=== PATIENT | female | born 1950 | race Caucasian/White ===

== ENCOUNTER → 2017-02-01 | Outpatient (CLI) | payer OTHER ==
[~2017-02-01] MED LIST: CA C1TAB60 PO; CHOL20002 PO; FENTANYL PF 100 MCG/2ML ONE; FLUMAZENIL 0.1 MG/1 ML, 5ML ONE; GABA-827 PO; HYDR-3237 PO; MIDAZOLAM 1 MG/ML, 5ML ONE; MULT-717 PO; NALOXONE 1 MG/ML, 2ML ONE; ONDA4TAB10 PO; PROM25SU34 RC; SUMA100T4 PO; TIZA4TAB PO; ZOLP10TA5 PO
== END | disposition home or self-care (01) ==
LOC: RAD 11:54
PROVIDERS: ATTEND Physician Assistant Surgical
DX: M13.812 Other specified arthritis, left shoulder (principal)
CPT/HCPCS: 73221; 99156; 99157; J2250; J3010; J2310

== ENCOUNTER 2019-08-01 18:10 | Emergency (ER) | payer MEDICARE, OTHER ==
[~2019-08-01] VITALS: Ht 162.6 cm; Wt 81.2 kg
[~2019-08-01 18:10] MED LIST changes: -CHOL20002 PO; +CHOL200052 PO; -FENTANYL PF 100 MCG/2ML ONE; -FLUMAZENIL 0.1 MG/1 ML, 5ML ONE; -MIDAZOLAM 1 MG/ML, 5ML ONE; -NALOXONE 1 MG/ML, 2ML ONE; -TIZA4TAB PO; +TIZA4TAB2 PO
--- NOTE | 2019-08-01 18:44 | NUR ---
PRESENTS WITH EPIGASTRIC PAIN RADIATING TO LEFT RIB CAGE. DENIES N/V/D. PT PLACED ON MONITOR. VS STABLE AT THIS TIME. WILL CONTINUE TO MONITOR.
[2019-08-01] MEDS ORDERED: MAALOX/HYOSCYAMINE/LIDOCAINE 45 ML BTL PO ONE (19:30)
[2019-08-01] MEDS ORDERED: ONDANSETRON 2MG/ML, 2ML IVPush ONE (19:30)
[2019-08-01] MEDS ORDERED: SODIUM CHLORIDE FLUSH 10ML SYR IVF ONE (19:30)
[2019-08-01] MEDS ORDERED: SODIUM CHLORIDE 0.9% 1,000ML IVBOLUS ONE (19:30)
[2019-08-01] MEDS ORDERED: MORPHINE SULFATE 4 MG/ML, 1ML ONE ×2 (19:33→20:03)
[2019-08-01] MEDS ORDERED: ONDANSETRON 2MG/ML, 2ML ONE (19:33)
[2019-08-01] MEDS ORDERED: MAALOX/HYOSCYAMINE/LIDOCAINE 45 ML BTL ONE (19:33)
[2019-08-01] MEDS: MORPHINE SULFATE 4 MG/ML, 1ML IVPush PRN ×2 (19:41→20:07)
[2019-08-01 19:52] LABS: BASOPHILS # (AUTO) 0.06 x10^3/uL (0-0.1); BASOPHILS % (AUTO) 1 % (0-1); EOSINOPHILS # (AUTO) 0.34 x10^3/uL (0-0.4); EOSINOPHILS % (AUTO) 6 % (1-7); LYMPHOCYTES # (AUTO) 1.91 x10^3/uL (1-3.4); LYMPHOCYTES % (AUTO) 32 % (22-44); MD NO; MEAN CORPUSCULAR HEMOGLOBIN 30.7 pg (27.0-34.8); MEAN CORPUSCULAR HGB CONC 33.6 g/dL (32.4-35.8); MEAN CORPUSCULAR VOLUME 91.3 fL (80-100); MEAN PLATELET VOLUME 8.8 fL (7.4-10.4); MONOCYTES % (AUTO) 9 % (2-9); NEUTROPHILS # (AUTO) 3.08 x10^3/uL (1.8-6.8); NEUTROPHILS % (AUTO) 52 % (42-75); PLATELET COUNT 216 x10^3/uL (130-400); RED BLOOD COUNT 4.69 x10^6/uL (3.82-5.3); RED CELL DISTRIBUTION WIDTH 12.9 % (9.6-15.2)
--- NOTE | 2019-08-01 19:52 | NUR ---
PT RESTING IN [facility]. REGISTRATION IN WITH ROOM GOING OVER PAPERWORK. NAD. GEE.
[2019-08-01 20:02] LABS: ALANINE AMINOTRANSFERASE 21 U/L (12-78); ALBUMIN 4.1 g/dL (3.4-5.0); ANION GAP 6 mmol/L (5-15); CALCIUM 9.2 mg/dL (8.5-10.1); CHLORIDE 100 mmol/L (98-107); CREATININE 0.92 mg/dL (0.55-1.02)
[2019-08-01 20:06] LABS: ALKALINE PHOSPHATASE 71 U/L (45-117); BILIRUBIN,TOTAL 0.8 mg/dL (0.2-1.0); TOTAL PROTEIN 7.5 g/dL (6.4-8.2); TROPONIN I < 0.015 ng/mL (0.000-0.045)
[2019-08-01 20:32] LABS: MICROSCOPIC AUTO
[2019-08-01] MEDS ORDERED: OMNIPAQUE 350 MG/ML, 100ML BOTTLE ONE (20:40)
[2019-08-01] MEDS ORDERED: KETOROLAC 30 MG/1 ML ONE (21:15)
[2019-08-01 21:20] VITALS: BP 98/47
[2019-08-01] MEDS ORDERED: KETOROLAC 30 MG/1 ML IVPush ONE (21:30)
== END 2019-08-01 21:59 | disposition home or self-care (01) ==
LOC: ED 19:32
DX: R10.13 Epigastric pain (principal); R94.31 Abnormal electrocardiogram [ECG] [EKG]
CPT/HCPCS: 36415; 71045; 74177; 80053; 81001; 83690; 84484; 85025; 87086; 93005; 96374; 96375; 99285; J1885; J2270; J2405; J7030; Q9967; 96376